=== PATIENT | female | born 1970 | race Caucasian/White ===

== ENCOUNTER 2017-04-06 09:10 | Emergency (ER) | payer BC ==
[2017-04-06 09:52] VITALS: BP 109/70
--- NOTE | 2017-04-06 10:11 | UC ---
Throat Pain/Nasal Dawit HPI - HPI Summary HPI Summary: Pt presents with c/o sudden onset of sore throat, body aches and chills X 1 day. - History of Current Complaint Chief Complaint: UCGeneralIllness Stated Complaint: FEVER,SORE THROAT,ACHY Time Seen by Provider: 04/06/17 10:03 Hx Obtained From: Patient Hx Last Menstrual Period: n/a ?: No Onset/Duration: Sudden Onset, Lasting Hours - 24 Severity: Mild Associated Signs & Symptoms: Positive: Dysphagia - Epiglottits Risk Factors Epiglottis Risk Factors: Sudden Onset - Allergies/Home Medications Allergies/Adverse Reactions: Allergies Allergy/AdvReac Type Severity Reaction Status Date / Time Ampicillin Allergy Intermediate Hives Verified 04/06/17 09:43 Home Medications: Home Medications [id number]-[id number] [Excedrin Extra Strength 250-250-65 mg] 2 tab PO ONCE 04/06/17 [History Confirmed 04/06/17] Norethindrone/Eth Est 1.02/22NF [Junel .02/22 (NF)] 1 tab PO DAILY 04/06/17 [ History Confirmed 04/06/17] PMH/Surg Hx/FS Hx/Imm Hx Previously Healthy: Yes - Surgical History Surgical History: Yes Surgery Procedure, Year, and Place: - Family History Known Family History: Positive: Other - positive for viral syndrome - Social History Alcohol Use: Weekly Substance Use Type: None Smoking Status (MU): Never Smoked Tobacco Review of Systems Constitutional: Chills Skin: Negative Eyes: Negative ENT: Sore Throat Respiratory: Cough Cardiovascular: Negative Gastrointestinal: Negative Genitourinary: Negative Motor: Negative Neurovascular: Negative Musculoskeletal: Negative Neurological: Negative Psychological: Negative All Other Systems Reviewed And Are Negative: Yes Physical Exam Triage Information Reviewed: Yes Appearance: Well-Appearing Vital Signs: Initial Vital Signs Temp 99 F 04/06/17 09:36 Pulse 75 04/06/17 09:36 Resp 16 04/06/17 09:36 BP 109/70 04/06/17 09:36 Pulse Ox 99 04/06/17 09:36 Eye Exam: Normal ENT: Positive: Pharyngeal erythema Neck exam: Normal Respiratory Exam: Normal Cardiovascular Exam: Normal Musculoskeletal Exam: Normal Psychological Exam: Normal Skin Exam: Normal Throat Pain/Nasal Course/Dx - Differential Dx/Diagnosis Differential Diagnosis/HQI/PQRI: Pharyngitis, Tonsillitis Provider Diagnoses: strep throat Discharge - Discharge Plan Condition: Stable Disposition: HOME Prescriptions: Azithromycin [Azithromycin 500 MG TAB] 500 mg PO DAILY #5 tab Patient Education Materials: Strep Throat (ED) Referrals: Wu HALEY,Janna Wilson [Primary Care Provider] -
== END 2017-04-06 10:24 | disposition home or self-care (01) ==
LOC: UCCORT 09:10
DX: J02.0 Streptococcal pharyngitis (principal)
CPT/HCPCS: 87651; 99212; G0463